=== PATIENT | female | born 1985 | race African-American/Black ===

== ENCOUNTER 2021-06-09 01:33 | Emergency (ER) | payer MEDICAID ==
[~2021-06-09] VITALS: Ht 162.6 cm; Wt 66.0 kg
[2021-06-09] MEDS ORDERED: LEVETIRACETAM 500MG PREMIX 100 ML IV ONE (02:30)
[2021-06-09 03:04] LABS: HEMATOCRIT. 34.6 % (36.0-48.0); HEMOGLOBIN. 10.9 g/dL (12.0-16.0); MEAN CORPUSCULAR HEMOGLOBIN 28.7 pg (28.0-32.0); MEAN PLATELET VOLUME 7.4 fl (7.4-10.4); PLATELET 369 x1000/uL (130-400); RED CELL DISTRIBUTION WIDTH 23.1 % (11.6-14.6)
[2021-06-09 03:21] LABS: CHLORIDE 103 mEq/L (98-107)
[2021-06-09 03:55] LABS: ETHANOL BLOOD 397 mg/dL
[2021-06-09 04:31] LABS: PLATELET ESTIMATE NORMAL
[2021-06-09 04:32] LABS: *AMPHETAMINES SCREEN URINE NEGATIVE (NEGATIVE); *BARBITURATES SCREEN URINE NEGATIVE (NEGATIVE); *BENZODIAZEPINES SCREEN URINE NEGATIVE (NEGATIVE); *COCAINE SCREEN URINE NEGATIVE (NEGATIVE); METHADONE URINE SCREEN NEGATIVE (NEGATIVE)
[2021-06-09 04:33] LABS: CANNABINOID URINE SCREEN NEGATIVE (NEGATIVE); OPIATES URINE SCREEN NEGATIVE (NEGATIVE); PHENCYCLIDINE URINE SCREEN NEGATIVE (NEGATIVE)
[2021-06-09] MEDS ORDERED: KEPP500 MT (04:42)
[2021-06-09 05:10] VITALS: BP 99/80
== END 2021-06-09 05:18 | disposition home or self-care (01) ==
LOC: ER 01:33
DX: G40.909 Epilepsy, unspecified, not intractable, without status epilepticus (principal); Z91.14 Patient's other noncompliance with medication regimen; R41.82 Altered mental status, unspecified; Z72.89 Other problems related to lifestyle
CPT/HCPCS: 36415; 80053; 80305; 80320; 85025; 93005; 96365; 99284; J1953; G0480

== ENCOUNTER 2021-06-09 06:43 | Emergency (ER) | payer MEDICAID ==
[~2021-06-09 06:43] MED LIST: KEPP500 MT
== END 2021-06-09 07:33 | disposition left against medical advice (07) ==
LOC: ER 06:43
DX: Z53.21 Procedure and treatment not carried out due to patient leaving prior to being seen by health care provider (principal)

== ENCOUNTER 2021-12-18 13:35 | Emergency (ER) | payer MEDICAID, OTHER ==
[~2021-12-18] VITALS: Ht 165.1 cm; Wt 73.0 kg
[2021-12-18 13:37] VITALS: BP 128/72
[2021-12-18] MEDS ORDERED: SODIUM CHLORIDE 0.9% 1,000 ML IV ONE (14:00)
[2021-12-18 15:17] LABS: HCG SCREEN NEGATIVE
[2021-12-18 15:19] LABS: CHLORIDE 111 mEq/L (98-107)
[2021-12-18 15:22] LABS: *AMPHETAMINES SCREEN URINE NEGATIVE (NEGATIVE); *BARBITURATES SCREEN URINE NEGATIVE (NEGATIVE); *BENZODIAZEPINES SCREEN URINE NEGATIVE (NEGATIVE); *COCAINE SCREEN URINE NEGATIVE (NEGATIVE); CANNABINOID URINE SCREEN NEGATIVE (NEGATIVE); METHADONE URINE SCREEN NEGATIVE (NEGATIVE); OPIATES URINE SCREEN NEGATIVE (NEGATIVE); PHENCYCLIDINE URINE SCREEN NEGATIVE (NEGATIVE)
[2021-12-18 15:30] LABS: BASOPHILS % 1.7 % (0.0-2.0); EOSINOPHILS % 1.8 % (0.0-5.0); HEMATOCRIT. 27.4 % (36.0-48.0); HEMOGLOBIN. 8.8 g/dL (12.0-16.0); LYMPHOCYTES % 52.4 % (20.0-50.0); MEAN CORPUSCULAR HEMOGLOBIN 29.5 pg (28.0-32.0); MEAN CORPUSCULAR VOLUME 91.4 fL (81.0-99.0); MEAN PLATELET VOLUME 7.4 fl (7.4-10.4); MONOCYTES % 13.3 % (2.0-8.0); NEUTROPHILS % 30.8 % (40.0-76.0); PLATELET 390 x1000/uL (130-400); RED CELL DISTRIBUTION WIDTH 21.3 % (11.6-14.6)
[2021-12-18 16:33] LABS: ETHANOL BLOOD 458 mg/dL
[2021-12-18] MEDS ORDERED: POTASSIUM CHLORIDE 20MEQ TABLET SR PO ONE (17:15)
== END 2021-12-18 17:30 | disposition left against medical advice (07) ==
LOC: ER 13:35
DX: F10.129 Alcohol abuse with intoxication, unspecified (principal); Y90.8 Blood alcohol level of 240 mg/100 ml or more; E87.6 Hypokalemia; R00.0 Tachycardia, unspecified; R74.01 Elevation of levels of liver transaminase levels; D64.9 Anemia, unspecified
CPT/HCPCS: 36415; 80053; 80305; 80320; 84703; 85025; 96360; 96361; 99283; J7030; G0480